=== PATIENT | female | born 2000 | race Caucasian/White ===

== ENCOUNTER 2021-06-06 16:13 | Emergency (ER) | payer BC, SELFPAY ==
--- NOTE | 2021-06-06 16:10 | ECG_ITS ---
APPROVED REPORT Exam: Resting ECG HR:101 bpm ECG Measurements Heart Rate 101 AXES MO 137 P 80 QRSd 86 QRS 92 QT 322 T 52 QTc 380 Conclusion SINUS TACHYCARDIA BORDERLINE RIGHT AXIS DEVIATION [QRS AXIS > 90] ABNORMAL RHYTHM ECG UNCONFIRMED REPORT Electronically signed by : Manish Busch MD 06/07/2021 19:21:15
[2021-06-06 16:14] VITALS: BP 134/86; PULSE 104; RESP 16; TEMP 36.9; O2SAT 100; BMI 30.2
--- NOTE | 2021-06-06 16:31 | HMH.EDGENADL ---
ED Disposition Clinical Impression: Near syncope, Atypical chest pain Disposition: Home, Self-Care Condition on Discharge: Good Instructions: DI for Syncope in Adults (Fainting), DI for Atypical Chest Pain Additional Instructions: Rest this evening and drink plenty of fluids. Follow-up with your primary care provider, call tomorrow to make appointment. Return if symptoms worsen. Additional instructions for CHEST PAIN: See your physician as soon as possible for further evaluation. Return immediately if worsening chest pain, vomiting, shortness of breath, fever, coughing of blood. Urine culture has been performed, results generally take 2 to 3 days. Follow-up the results of this test with your primary care provider within 2 to 3 days. Referrals: Minda Yun [Primary Care Provider] - - Critical Care Critical Care Time: No Attestation: On , the high probability of a clinically significant, sudden or life threatening deterioration of the following system(s) required my full and direct attention, intervention and personal management. The time I documented below is in addition to time spent performing reported procedures but includes the following listed in this critical care notation. Medical Decision Making - Michael Inquiry Pt receiving controlled substance: No Vital Signs: 06/06/21 16:14 06/06/21 17:10 Temperature 98.5 F Temperature Source Oral Pulse Rate [Orthostatic Lying Right Brachial] 92 H Pulse Rate [Orthostatic Sitting Right Brachial] 92 H Pulse Rate [Orthostatic Standing Right Brachial] 100 H Pulse Rate [Right Radial] 104 H Respiratory Rate 16 Blood Pressure [Orthostatic Lying Right Arm] 120/70 Blood Pressure [Orthostatic Sitting Right Arm] 120/75 Blood Pressure [Orthostatic Standing Right Arm] 111/78 Blood Pressure [Right Arm] 134/86 Blood Pressure Mean [Right Arm] 102 Blood Pressure Source [Right Arm] Automatic Cuff Blood Pressure Position [Right Arm] Sitting 02 Sat by Pulse Oximetry 100 Oxygen Delivery Method Room Air - Lab Data Lab Results 06/06/21 16:30: Urine Color Yellow, Urine Appearance Clear, Urine pH 6.5, Ur Specific [place] 1.025, Urine Protein Trace, Urine Glucose (UA) Negative, Urine Ketones Negative, Urine Blood 2+, Urine Nitrate Negative, Urine Bilirubin Negative, Urine Urobilinogen 0.2, Ur Leukocyte Esterase 1+ A, Urine RBC 10-20, Urine WBC 3-5, Ur Squamous Epith Cells 3-5, Urine Bacteria None 06/06/21 16:30: WBC 10.2, RBC 4.42, Hgb 13.8, Hct 40.4, MCV 91.4, MCH 31.2, MCHC 34.1, RDW 13.4, Plt Count 346, MPV 7.4, Neut % (Auto) 71.8, Lymph % (Auto) 20.9, [place] % (Auto) 6.3, Eos % (Auto) 0.3, Baso % (Auto) 0.6, Neut # (Auto) 7.4, Lymph # (Auto) 2.2, [place] # (Auto) 0.6, Eos # (Auto) 0.0, Baso # (Auto) 0.1 06/06/21 16:30: Urine HCG, Qual Negative 06/06/21 16:30: Sodium 134 L, Potassium 3.7, Chloride 101, Carbon Dioxide 26, Anion Gap 10.7, BUN 14, Creatinine 0.60, Estimated Creat Clear 173, Estimated GFR 129, Est GFR ( Amer) 156, Glucose 90, Calcium 8.5, Troponin I < 0.01 06/06/21 16:30: D-Dimer 0.48 Result diagrams: 06/06/21 16:30 06/06/21 16:30 Orders (Tests/Meds): ED MEDICATIONS Generic Name Dose Route Start Last Admin Trade Name Freq PRN Reason Stop Dose Admin Sodium Chloride 10 ml 06/06/21 16:34 Sodium Chloride 0.9% 10ml Flush Syringe IV 07/06/21 16:33 NEEDED PRN Maintain IV Site ORDERS Category Date Time Status Troponin I Q3H Lab 06/06/21 19:45 Ordered Troponin I Q3H Lab 06/06/21 22:45 Ordered Urine Culture Stat Micro 06/06/21 16:30 Received - Radiology Data #1 Image(s): Chest Image Reviewed: Yes I reviewed the patient's radiology image, Yes I have reviewed radiologist's interpretation Preliminary Findings: Normal/NAD PROCEDURE INFORMATION: Exam: XR Chest Exam date and time: 06/06/2021 4:34 PM Age: 20 years old Clinical indication: Pain; Chest pressure; Additional info: Syncope TECHNIQUE:
[2021-06-06 16:32] VITALS: BMI 30.2
--- NOTE | 2021-06-06 16:34 | XR_ITS ---
PROCEDURE INFORMATION: Exam: XR Chest Exam date and time: 06/06/2021 4:34 PM Age: 20 years old Clinical indication: Pain; Chest pressure; Additional info: Syncope TECHNIQUE: Imaging protocol: XR of the chest. Views: 1 view. Total images: 1 COMPARISON: No relevant prior studies available. FINDINGS: Lungs: Normal pulmonary expansion. Pulmonary vasculature grossly normal. No gross pulmonary infiltrates or edema pattern. Pleural spaces: No pleural effusion. No pneumothorax. Heart/Mediastinum: Heart size normal. No tracheal/mediastinal shift. Bones/joints: No acute osseous abnormalities are identified. IMPRESSION: No acute thoracic process.
--- NOTE | 2021-06-06 16:39 | PC.NURSE ---
PT AMBULATED UP TO BATHROOM , SHE ALSO REQUESTED A PREG TEST
--- NOTE | 2021-06-06 16:39 | PC.NURSE ---
Radiology at bedside
--- NOTE | 2021-06-06 16:46 | PC.NURSE ---
ER at bedside
[2021-06-06 16:48] LABS: Microscopic, Urine URINE MICROSCOPIC (MICROSCOPIC)
[2021-06-06 16:50] LABS: Appearance,Urine CLEAR (Clear); Bilirubin,Urine Negative (Negative); Blood, Urine 2+ (Negative); Color,Urine YELLOW (Yellow); Glucose,Urine (UA) Negative (Negative); Ketones,Urine Negative (Negative); Leukocyte Esterase,Urine 1+ (Negative); Nitrate,Urine Negative (Negative); PH,Urine 6.5 (5.0-8.5); Protein,Urine TRACE (Negative); Specific Gravity, Urine 1.025 (1.005-1.030); Urobilinogen,Urine 0.2 EU/dl (0.2)
[2021-06-06 16:53] LABS: Chloride 101 mmol/L (98-107); Sodium 134 mmol/L (136-145)
[2021-06-06 16:54] LABS: Basophils # 0.1 K/mm3 (0-0.2); Basophils % 0.6 % (0.1-2.0); Eosinophils % 0.3 % (0.1-12.0); Hematocrit 40.4 % (37.0-47.0); Hemoglobin 13.8 g/dL (12.2-16.2); Lymphocytes # 2.2 K/mm3 (0.7-4.5); Lymphocytes % 20.9 % (10-50); Mean Corpuscular HGB Conc 34.1 g/dL (31.8-35.4); Mean Corpuscular Hemoglobin 31.2 pg (27.0-31.2); Mean Corpuscular Volume 91.4 fl (81-99); Mean Platelet Volume 7.4 fl (7.4-10.4); Monocytes # 0.6 K/mm3 (0.1-1.0); Monocytes % 6.3 % (1.7-9.3); Neutrophils # 7.4 K/mm3 (1.8-7.8); Neutrophils % 71.8 % (37.0-80.0); Platelet Count 346 K/mm3 (142-424); Potassium 3.7 mmoL/L (3.5-5.1); Red Blood Count 4.42 M/mm3 (4.20-5.40); Red Cell Distribution Width 13.4 % (11.5-17.5); White Blood Count 10.2 K/mm3 (4.5-13.0)
[2021-06-06 16:57] LABS: Anion Gap 10.7 mEq/L (5-15); Blood Urea Nitrogen 14 mg/dl (7-17); Calcium 8.5 mg/dl (8.4-10.2); Carbon Dioxide 26 mmol/L (22.0-30.0); Creatinine Clearance Estimated 173 mL/min (50-200); Estimated Glomerular Filt Rate 129 ml/min (>60); GFR (African American) 156 ML/MIN (>60); Glucose 90 mg/dl (74-100)
[2021-06-06 17:05] LABS: D-Dimer 0.48 ug/mL (0.0-0.5)
[2021-06-06 17:09] LABS: Urine Pregnancy, HCG Qual. Negative (Negative)
[2021-06-06 17:10] VITALS: BP 111/78; BP 120/70; BP 120/75; PULSE 100; PULSE 92
[2021-06-06 17:22] LABS: Troponin I < 0.01 ng/ml (0.00-0.034)
[2021-06-06 18:46] VITALS: BP 100/65; PULSE 96; RESP 16; TEMP 37.1; O2SAT 99
== END 2021-06-06 18:49 | disposition home or self-care (01) ==
PROVIDERS: Emergency Provider Emergency Medicine; PCP Nurse Practitioner Pediatrics
DX: R55 Syncope and collapse (principal); R07.89 Other chest pain
CPT/HCPCS: 71045; 80048; 81001; 81025; 84484; 85025; 85378; 87086; 87088; 87186; 93005; 99283

== ENCOUNTER 2022-11-20 17:27 | Emergency (ER) | payer BC, SELFPAY ==
[2022-11-20] VITALS (7 sets, daily range): BP systolic 104–127; BP diastolic 62–78; PULSE 74–102; RESP 17–20; TEMP 36.9; O2SAT 98–100; BMI 32.1
[2022-11-20 17:57] LABS: Basophils % 0.3 % (0.1-2.0); Eosinophils % 0.2 % (0.1-12.0); Hematocrit 39.4 % (37.0-47.0); Hemoglobin 13.1 g/dL (12.2-16.2); Lymphocytes % 17.4 % (10-50); Mean Corpuscular HGB Conc 33.3 g/dL (31.8-35.4); Mean Corpuscular Hemoglobin 30.5 pg (27.0-31.2); Mean Corpuscular Volume 91.5 fl (81-99); Mean Platelet Volume 7.7 fl (7.4-10.4); Monocytes # 0.5 K/mm3 (0.1-1.0); Monocytes % 4.6 % (1.7-9.3); Neutrophils # 8.7 K/mm3 (1.8-7.8); Neutrophils % 77.5 % (37.0-80.0); Platelet Count 373 K/mm3 (142-424); Red Cell Distribution Width 13.9 % (11.5-17.5); White Blood Count 11.3 K/mm3 (4.8-10.8)
[2022-11-20 18:06] LABS: Chloride 105 mmol/L (98-107); Sodium 139 mmol/L (136-145)
[2022-11-20 18:07] LABS: Potassium 3.6 mmoL/L (3.5-5.1)
[2022-11-20 18:09] LABS: Alanine Aminotransferase 17 U/L (12-78); Albumin Level 4.2 g/dl (3.5-5.0); Albumin/Globulin Ratio 1.8 (1.1-1.8); Alkaline Phosphatase 53 U/L (38-126); Anion Gap 16.6 mEq/L (5-15); Aspartate Amino Transferase 20 U/L (14-36); Bilirubin,Total 0.4 mg/dl (0.2-1.3); Blood Urea Nitrogen 10 mg/dl (7-17); Carbon Dioxide 21 mmol/L (22.0-30.0); Creatinine Clearance Estimated 217 mL/min (50-200); Estimated Glomerular Filt Rate 156 ml/min (>60); GFR (African American) 188 ML/MIN (>60); Globulin 2.4 g/dL (1.3-3.2); Total Protein,Serum 6.6 g/dl (6.3-8.2)
[2022-11-20 18:10] LABS: Calcium 10.6 mg/dl (8.4-10.2); Glucose 89 mg/dl (74-100)
[2022-11-20 18:24] LABS: Microscopic, Urine URINE MICROSCOPIC (MICROSCOPIC)
[2022-11-20 18:30] LABS: Appearance,Urine CLEAR (Clear); Bilirubin,Urine Negative (Negative); Blood, Urine 1+ (Negative); Color,Urine YELLOW (Yellow); Glucose,Urine (UA) Negative (Negative); Ketones,Urine Negative (Negative); Leukocyte Esterase,Urine Negative (Negative); Nitrate,Urine Negative (Negative); Protein,Urine Negative (Negative); Specific Gravity, Urine 1.025 (1.005-1.030)
--- NOTE | 2022-11-20 18:46 | HMH.EDGENADL ---
Discharge Plan Disposition Patient Disposition: Left Against Medical Advice Referrals Follow up/Referrals: Luis E Hook PA [Primary Care Provider] - See instructions Activity Restrictions/Add. Instructions Additional Instructions/Restrictions: You have signed out AGAINST MEDICAL ADVICE. Please return to the ED at any time to complete your evaluation. Please follow-up with your OB doctor within 48 hours for repeat testing of your hCG. Clinical Impressions Clinical Impression: Bleeding in early , , location unknown Discharge ED Provider: Dino Russell General Adult HPI General Chief complaint: Vaginal Bleeding Stated complaint: 7 weeks , spotting Time Seen by Provider: 11/20/22 18:17 Mode of Arrival: Ambulatory Limitations: No Limitations Description of Symptoms (Recalled from ER Triage Doc. by RN): PT REPORTS LIGHT PINK AND OCCASIONAL DARK BROWN VAGINAL DISCHARGE WITH WIPING AFTER USING BATHROOM. PT REPORTS SHE IS APPROX 7 WEEKS . NO BRIGHT RED VAGINAL BLEEDING, NO CLOTS OR PAIN. PT REPORTS PREVIOUS MISCARRIAGE IN MAY 2022. History of Present Illness HPI narrative: Patient is a 22-year-old female with no significant past medical history, 7 weeks who presents to the emergency department for evaluation of vaginal bleeding. Patient reportedly had a miscarriage in May of this year. For the last few days patient has had spotting with wiping. Denies passage of clots or tissue. There is no low abdominal pain. Patient reportedly had an ultrasound conducted at another institution where the heart rate was in the 80s. She was not able to qualify any other information about this ultrasound. No other acute complaints at this time. Related Data Allergies Allergy/AdvReac Type Severity Reaction Status Date / Time amoxicillin Allergy Intermediate Verified 06/06/21 16:33 [facility] Disclaimer: The information contained in this section may have been updated after the patient was seen, as this information can be updated by other users. Social History Smoking Status: Current every day smoker alcohol intake: never current occupational status: other Travel in the last 8 weeks: None ROS Obtained: Yes Systems reviewed as appropriate & no additional complaints except as documented Physical Exam General General appearance: alert and in no apparent distress Head Head exam: atraumatic and normocephalic Eye Eye exam: Present PERRL and EOMI ENT ENT exam: Present mucous membranes moist Neck Neck exam: Present normal inspection Chest Chest inspection: Present normal inspection and symmetric chest wall rise Respiratory Respiratory exam: Present normal lung sounds bilaterally; Absent respiratory distress Cardiovascular Cardiovascular exam: Present regular rate and normal rhythm Abdominal Exam Abdominal exam: Present soft; Absent tenderness, guarding or rebound Extremities Exam Extremities exam: Present normal inspection Neurological Exam Neurological exam: Present alert and oriented X3 Psychiatric Psychiatric exam: Present normal affect Skin Skin exam: Present warm and dry Medical Decision Making Michael Inquiry Pt receiving controlled substance: No Vital Signs: 11/20/22 17:29 11/20/22 18:00 11/20/22 18:30 Temperature 98.5 F Temperature Source Oral Pulse Rate 88 88 Pulse Rate [Radial] 102 H Respiratory Rate 17 20 20 Blood Pressure 104/62 L 107/66 L Blood Pressure [Right Arm] 127/78 Blood Pressure Mean 76 82 Blood Pressure Mean [Right Arm] 94 Blood Pressure Source [Right Arm] Automatic Cuff Blood Pressure Position [Right Arm] Sitting 02 Sat by Pulse Oximetry 98 100 100 Oxygen Delivery Method Room Air 11/20/22 19:00 11/20/22 19:30 11/20/22 20:00 Temperature Temperature Source Pulse Rate 94 H 82 79 Pulse Rate [Radial] Respiratory Rate Blood Pressure 108/63 L 105/70 L 114/64 Blood Pressure [Right Arm] Blood Pressure Mean
[2022-11-20 19:04] LABS: Bacteria,Urine 1+ /lpf; RBC,Urine Occasional #/hpf (0-3)
[2022-11-20 19:05] LABS: Amorphous Sediment,Urine Trace /lpf
--- NOTE | 2022-11-20 19:42 | PC.NURSE ---
Rounded on pt. No needs voiced at this time.
--- NOTE | 2022-11-20 19:45 | PC.NURSE ---
rounded on patient given warm blanket, TV turned on, mother at bs
[2022-11-20 20:14] LABS: HCG,Quantitative 29431 mIU/ml (0-5.42)
--- NOTE | 2022-11-20 20:17 | PC.NURSE ---
Called RAD to have them page automotive parts counterperson u/s tech. Pt updated at this time.
--- NOTE | 2022-11-20 20:23 | PC.NURSE ---
Dr. Russell at BS
--- NOTE | 2022-11-20 20:25 | PC.NURSE ---
Md @ bedside and pt understand request of not having ultrasound and has decided to sign out AMA
== END 2022-11-20 20:52 | disposition left against medical advice (07) ==
PROVIDERS: Emergency Provider Emergency Medicine; PCP Student in an Organized Health Care Education/Training Program
DX: O26.851 Spotting complicating pregnancy, first trimester (principal); Z3A.01 Less than 8 weeks gestation of pregnancy
CPT/HCPCS: 80053; 81001; 84702; 85025; 86900; 86901; 99285

== ENCOUNTER 2024-04-27 17:42 | Outpatient (CLI) | payer BC, SELFPAY ==
[2024-04-27] VITALS (11 sets, daily range): BP systolic 123–156; BP diastolic 76–95; PULSE 72–97; RESP 18; TEMP 36.8; O2SAT 98–100; BMI 35.5
[2024-04-27 18:13] LABS: Microscopic, Urine URINE MICROSCOPIC (MICROSCOPIC)
[2024-04-27 18:21] LABS: Appearance,Urine CLEAR (Clear); Bilirubin,Urine Negative (Negative); Blood, Urine Negative (Negative); Color,Urine YELLOW (Yellow); Glucose,Urine (UA) Negative (Negative); Ketones,Urine Negative (Negative); Leukocyte Esterase,Urine 2+ (Negative); Nitrate,Urine Negative (Negative); PH,Urine 7.5 (5.0-8.5); Protein,Urine Negative (Negative)
[2024-04-27 19:08] LABS: Bacteria,Urine 4+ /lpf; Squamous Epithelial Cell,Urine 20-50 #/hpf (0-5); WBC,Urine 50-100 #/hpf (0-3)
[2024-04-27 19:38] LABS: Amphetamine/Metha Screen,Urine Negative ng/ml (<1000); Benzodiazepines Screen,Urine Negative ng/ml (<200)
[2024-04-27 19:39] LABS: Barbiturates Screen,Urine Negative ng/ml (<200)
[2024-04-27 19:40] LABS: Cannabinoid Screen,Urine Negative ng/ml (<50); Cocaine Screen,Urine Negative ng/ml (<300)
[2024-04-27 19:41] LABS: Methadone Screen,Urine Negative ng/ml (<300); Opiate Screen,Urine Negative ng/ml (<300)
[2024-04-27 19:42] LABS: Phencyclidine Screen,Urine Negative ng/ml (<25)
[2024-04-27 20:02] LABS: Basophils % 0.3 % (0.1-2.0); Eosinophils % 0.3 % (0.1-12.0); Hematocrit 31.7 % (37.0-47.0); Hemoglobin 10.3 g/dL (12.2-16.2); Lymphocytes # 1.8 K/mm3 (0.7-4.5); Lymphocytes % 14.7 % (10-50); Mean Corpuscular HGB Conc 32.5 g/dL (31.8-35.4); Mean Corpuscular Hemoglobin 28.8 pg (27.0-31.2); Mean Corpuscular Volume 88.5 fl (81-99); Mean Platelet Volume 10.1 fl (7.4-10.4); Monocytes # 0.8 K/mm3 (0.1-1.0); Neutrophils # 9.8 K/mm3 (1.8-7.8); Platelet Count 260 K/mm3 (142-424); Red Blood Count 3.58 M/mm3 (4.20-5.40); Red Cell Distribution Width 14.5 % (11.5-17.5); White Blood Count 12.5 K/mm3 (4.8-10.8)
[2024-04-27 20:21] LABS: Chloride 106 mmol/L (98-107)
[2024-04-27 20:22] LABS: Albumin Level 3.4 g/dl (3.5-5.0); Sodium 133 mmol/L (136-145)
[2024-04-27 20:24] LABS: Alanine Aminotransferase 15 U/L (12-78); Anion Gap 8.1 mEq/L (5-15); Aspartate Amino Transferase 21 U/L (14-36); Blood Urea Nitrogen 5 mg/dl (7-17); Carbon Dioxide 22 mmol/L (22.0-30.0); Creatinine Clearance Estimated 238 mL/min (50-200); Estimated Glomerular Filt Rate 154 ml/min (>60); GFR (African American) 187 ML/MIN (>60); Potassium 3.1 mmoL/L (3.5-5.1)
[2024-04-27 20:25] LABS: Activated Partial Thrombo Time 24.8 seconds (22.5-28.5); Albumin/Globulin Ratio 1.4 (1.1-1.8); Alkaline Phosphatase 128 U/L (38-126); Bilirubin,Total 0.2 mg/dl (0.2-1.3); Calcium 8.9 mg/dl (8.4-10.2); Globulin 2.5 g/dL (1.3-3.2); Glucose 85 mg/dl (74-100); INR 0.86 (0.9-1.1); Prothrombin Time 9.6 seconds (9.2-12.1); Total Protein,Serum 5.9 g/dl (6.3-8.2)
[2024-04-27 20:47] LABS: Uric Acid 3.5 mg/dl (2.5-6.2)
[2024-04-27 21:08] LABS: Fibrinogen 427 mg/dL (208.1-352.0)
== END 2024-04-27 21:30 | disposition home or self-care (01) ==
LOC: OBOUT 17:46 → OB 17:47
PROVIDERS: Visit Provider Nurse Practitioner Obstetrics & Gynecology
DX: O10.913 Unspecified pre-existing hypertension complicating pregnancy, third trimester (principal); Z3A.36 36 weeks gestation of pregnancy
CPT/HCPCS: 80053; 80307; 81001; 84550; 85025; 85384; 85610; 85730; 87086; G0463

== ENCOUNTER 2024-10-25 16:04 | Outpatient (CLI) | payer BC, SELFPAY ==
--- OUTSIDE RECORDS SUMMARY | 2024-10-25 16:06 | XMS_ITS | Encounter Summary ---
Author Organization Healthcare Address [address] [place] [address] Care Team Providers Care Tongue Stitcher Name Role Phone Whitney Martinez MD Primary Care Provider [phone] Encounter Details Date Type Department Care Team (Late st Contact Info) Description 03/16/2024 Outside Procedure External Location [address] [place] [address] Ranulfo Ayala MD [address] [place] [address] Social History Tobacco Use Types Packs/Day Years Used Date Smoking Tobacco: Never Smokeless Tobacco: Former Quit: 01/2023 Alcohol Use Standard Drinks/Week Comments Not Currently 0 (1 standard drink = 0.6 oz pur e alcohol) PHQ-2 Answer Date Recorded Patient Health Questionnaire-2 Score 0 03/17/2024 PHQ-2A Answer Date Recorded Patient Health Questionnaire-2 Score 0 03/09/2023 Comments Yes Sex and Gender Information Value Date Recorded Sex Assigned at Not on file Legal Sex Female 9:15 AM EST Gender Identity Not on file Sexual Orientation Not on file documented as of this encounter Functional Status * Over the past 2 weeks, how often have you been bothered by any of the following problems? Question Answer Date of Assessment Author Little interest or pleasure in doing things Not at all 03/17/2024 8:27 AM EST Anupam Watkins Feeling down, depressed, or hopeless Not at all 03/17/2024 8:27 AM EST Anupam Watkins Patient Health Questionnaire -2 Score 0 03/17/2024 8:27 AM EST Anupam Watkins documented as of this encounter Plan of Treatment Not on file documented as of this encounter Procedures Procedure Name Priority Date/Time Associated Diagnosis Comments US RENAL COMPLETE 03/16/2024 8:3 8 AM EST documented in this encounter Results * US Renal Complete (03/16/2024 8:38 AM EST) Anatomical Region Laterality Modality Kidney Ultrasound 03/16/2024 8:38 AM EST Narrative 03/16/2024 12:02 [place] [address] Name: VIANNEY ALVAREZ Exam Date: 03/16/2024 : 2000 Age 23 years Gender: F Physician: RANULFO AYALA Facility: [facility] Facility HSV: Outpatient Exam: RENAL,BILATERAL US Procedure: US KIDNEY BILATERAL Exam Date: 03/16/2024 9:44 AM JOB SETTER Indication:back pain r/o kidney stone Comparison: None. Technique: Sinclair scale sonographic evaluation of the kidneys was performed with color Doppler or Duplex imaging if needed. FINDINGS: The right kidney measures 13.3 cm in length and demonstrates normal cortical echogenicity. No hydronephrosis or shadowing renal calculi demonstrated. The left kidney measures 12.5 cm in length and demonstrates normal cortical echogenicity. Mild left-sided hydroureteronephrosis. No shadowing renal calculi demonstrated. IMPRESSION: Mild left-sided hydroureteronephrosis. No renal calculi demonstrated. Electronically signed by:Whitney Cox MD03/16/2024 11:59 AM EST Dictated By: Whitney Cox Transcribed By: Transcribed On: 03/16/2024 10:44 AM Electronically signed by: Whitney Cox 03/16/2024 Thank you for referring VIANNEY ALVAREZ to [facility]. Legally authenticated by SUNSHINE ARAUJO 2024-03-16 10:44:20 Procedure Note Provider, Generic [facility] 03/16/2024 [facility] [address] [place] [address] Name: VIANNEY ALVAREZ Exam Date: 03/16/2024 : 2000 Age 23 years Gender: F Physician: RANULFO AYALA Facility: [facility] Facility HSV: Outpatient Exam: RENAL,BILATERAL US Procedure: US KIDNEY BILATERAL Exam Date: 03/16/2024 9:44 AM JOB SETTER Indication:back pain r/o kidney stone Comparison: None. Technique: Sinclair scale sonographic evaluation of the kidneys was performedwith color Doppler or Duplex imaging if needed. FINDINGS: The right kidney measures 13.3 cm in length and demonstrates normalcortical echogenicity. No hydronephrosis or shadowing renal calculi demonstrated. The left kidney measures 12.5 cm in length and demonstrates normalcortical echogenicity. Mild left-sided hydroureteronephrosis. No shadowing renal calculi demonstrated. IMPRESSION: Mild left-sided hydroureteronephrosis. No renal calculi demonstrated. Electronically signed by:Whitney Cox MD03/16/2024 11:59 AM EST Dictated By: Whitney Cox Transcribed By: Transcribed On: 03/16/2024 10:44 AM Electronically signed by: Whitney Cox 03/16/2024 Thank you for referring VIANNEY ALVAREZ to [facility]. Legally authenticated by SUNSHINE ARAUJO 2024-03-16 10:44:20 us Ranulfo Ayala MD IMG US PROCEDURES Final Result documented in this encounter Visit Diagnoses Not on filedocumented in this encounter Additional Health Concerns Assessment Noted Time A fall risk assessment has been complete d for the patient 02/18/2024 8:36 AM EST A Body Mass Index follow-up plan has been documented for the patient 02/18/2024 8:55 AM EST documented as of this encounter Care Teams Tongue Stitcher Relationship Specialty Start Date End Date Whitney Martinez MD [address] [place] [address] PCP - General 03/09/23 documented as of this encounter
--- OUTSIDE RECORDS SUMMARY | 2024-10-25 16:07 | XMS_ITS | Clinical Summary ---
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 3 Active FOLIC ACID PO Take by mouth. A ctive ferrous sulfate 325 (65 Fe) MG tablet Take 1 tablet (325 mg) by mouth 2 (two) times a day. 60 tablet 3 4 Active Additional Information Patient not taking.Reported on 08/03/2024 ibuprofen 800 MG tablet TAKE ONE (1) TABLET (800 MG) BY MOUTH EVERY EIGHT HOURS *TIME FOR 8AM, 4PM, 12AM* (NOT TO EXC EED 2400MG IN 24 HOURS) 5 Active docusate sodium (Colace) 100 MG capsule TAKE TWO (2) CAPSULES (200 MG) BY MOUTH EVERY TWELVE HOURS NEEDED FOR CONSTIPATION 5 Active acetaminophen (Tylenol) 325 MG tablet TAKE TWO (2) TABLETS (650 MG) BY MOUTH EVERY SIX HOURS NEEDED FOR MILD PAIN 1-3 PAIN SCALE OR FEVER (NOT TO EXCEED 3000MG IN 24 HOURS) 5 Active labetalol (Normodyne) 100 MG tablet take two (2) tablets (200 mg) by mouth three times a day 5 Active sertraline (Zoloft) 50 MG tablet take one (1) tablet every day by oral route. Active norethindrone-e thinyl estradiol (05/02) 1-20 MG-MCG tabletIndicatio ns:Encounter for routine follow-up Take 1 tablet by mouth daily. 28 tablet 11 Active Additional Information Patient not taking.Reported on 08/03/2024 Active Problems Problem Noted Date Diagnosed Date IUD contraception 08/03/2024 Assessment & Plan (08/03/2024 10:47 AM EDT): Orders: POCT Urine Encounter for gynecological examination without abnormal finding 06/17/2024 Resolved Problems Problem Noted Date Diagnosed Date Resolved Date Encounter for routine follow-up 05/13/2024 08/03/2024 Mild pre-eclampsia, antepartum 05/13/2024 06/17/2024 Mastitis 05/13/2024 05/20/2024 35 weeks gestation of 02/18/2024 05/13/2024 22 weeks gestation of 11/19/2023 02/18/2024 state, incidental 10/08/2023 0 11/19/2023 Assessment & Plan (10/08/2023 8:56 AM EDT): - labs today - pap - US shows viable SIUP with CRL not c/w LMP, change MELYSSA to 05/25/24 - continue PNV and folic acid - precautions discussed. New OB backpack given - RTC for 2 week viability US Encounters Date Type Department Care Team Description 08/03/2024 10:00 AM EDT Procedure Visit Obstetrics & Gynecology [address] [place] [address] Melina Vásquez MD IUD contraception (Primary Dx) 08/03/2024 Travel from Last 3 Months Immunizations Immunization Administration Dates Next Due Influenza, seasonal, injectable, preservative fr ee 12/17/2023 Rsv, Bivalent, Protein Subun it Rsvpref, Diluent Reconstituted, 0.5mL, PF 04/04/2024 Tdap 03/17/2024 Family History Medical History Relation Name Comments Cancer Cousin Diabetes Father Jovany No Known Problems Father's Brother No Known Problems Father's Sister No Known Problems Maternal Grandfather Cancer Maternal Grandmother Lizbet Patel No Known Problems Mother No Known Problems Mother's Brother Breast cancer Mother's Sister Diabetes Paternal Grandfather Jovany Diabetes Paternal Grandmother Nahid No Known Problems Sister Relation Name Status Comments Cousin Alive Father Jovany Alive Father's Brother Alive Father's Sister Alive Maternal Grandfather Maternal Grandmother Lizbet Patel Mother Alive Mother's Brother Alive Mother's Sister Alive Paternal Grandfather Jovany Alive Paternal Grandmother Nahid Alive Sister Alive Social History Tobacco Use Types Packs/Day Years Used Date Smoking Tobacco: Never Smokeless Tobacco: Former Quit: 01/11/2023 Tobacco Cessation:Counseling Given: Not Answered Alcohol Use Standard Drinks/Week Comments Not Currently 0 (1 standard drink = 0.6 oz pur e alcohol) PHQ-2 Answer Date Recorded Patient Health Questionnaire-2 Score 0 08/03/2024 Empire Depression Scale Answer Date Recorded Empire Depression Scale Total 4 06/06/2024 The thought of harming myself has occurred to me . Never 06/06/2024 PHQ-9 Answer Date Recorded Patient Health Questionnaire-9 Score 0 08/03/2024 PHQ-2A Answer Date Recorded Patient Health Questionnaire-2 Score 0 03/09/2023 Comments No Sex and Gender Information Value Date Recorded Sex Assigned at Not on file Legal Sex Female 9:15 AM EST Gender Identity Not on file Sexual Orientation Not on file Last Filed Vital Signs Vital Sign Reading Time Taken Comments Blood Pressure 104/66 08/03/2024 10:13 AM EDT Pulse 80 08/03/2024 10:13 AM EDT Temperature 36.8 C (98.3 F) 06/06/2024 11:24 AM EST Respiratory Rate 16 08/03/2024 10:13 AM EDT Oxygen Saturation 100% 08/03/2024 10:13 AM EDT Inhaled Oxygen Concentration - - Weight 77 kg (169 lb 12.1 oz) 08/03/2024 10:13 A M EDT Height 154.9 cm (5' 1 ) 08/03/2024 10:13 AM EDT Body Mass Index 32.07 08/03/2024 10:13 AM EDT Plan of Treatment Health Maintenance Due Date Last Done Comments [facility]-Infant/Child/Adol SDOH Screenings 2001 [facility]- SDOH Screenings 07/07/2019 [facility]-Adult SDOH Screenings 07/07/2019 [facility]-Pap Smear 2022 [id number] Vaccine ( season) 2023 04/08/2021, 03/14/2021 [facility]-Chlamydia and Gonorrhea Screening 10/07/2024 10/08/2023, 10/08/2023 [facility]-Influenza Vaccine (#1) 2024 12/17/2023 [facility]-Depression Screening 08/03/2025 025, 08/03/2024, 06/06/2024 [facility]-DTaP,Tdap,and Td Vaccines (8 - Td or Tdap) 03/17/2034 03/17/2024, 11/04/2012, 10/05/2006, Additional history exists [facility]-Zoster Vaccines (1 of 2) 07/07/2051 01/19/2023, 12/24/2022, 10/05/2006, Additional history exists [facility]-HIB Vaccines Completed 07/21/2002, 12/2001, 2001 [facility]-Hepatitis B Vaccines Completed 003, 2001, 2001 [facility]-IPV Vaccines Completed 10/05/2006, 12/2001, 2001, Additional history exists HPV Vaccines Completed 12/15/2017, 09/2017, 11/04/2012 [facility]-Hepatitis A Vaccines Completed 12/15/2017, 09/2017 [facility]-Varicella Vaccines Completed , 12/24/2022, 10/05/2006, Additional history exists [facility]-HIV Screening Completed 10/08/2023 [facility]-Hepatitis C Screening Completed 10/08/2023 [facility]-RSV Vaccine: 60+ Years or Discontinued 04/04/2024 [facility]-Obesity Intervention Completed 025, 06/17/2024, 06/06/2024, Additional history exists [facility]-Pneumococcal Vaccine: Pediatrics (0 to 5 Years) and At-Risk Patients (6 to 49 Years) Aged Out No longer eligible based on patient's age to complete this topic [facility]-Rotavirus Vaccines Aged Out No lo nger eligible based on patient's age to complete this topic Procedures Procedure Name Priority Date/Time Associated Diagnosis Comments POCT , URINE Routine 08/03/2024 10:26 AM EDT IUD contraception MD INSERT INTRAUTERINE DEVICE Routine 08/03/2024 10:00 AM EDT IUD contraception HEPATITIS C ANTIBODY W/REFLEX TO HCV QUANT PCR Routine 10/08/2023 8:47 AM EDT state, incidental HIV 1/2 ANTIBODY/ANTIGEN SCREEN WITH REFLEX TO HIV I/II DIFFERENTIATION Routine 10/08/2023 8:47 AM EDT state, incidental CHLAMYDIA TRACHOMATIS DNA BY PCR Routine 10/08/2023 8:47 AM EDT state, incidental from Last 3 Months or Most Recently Relevant to Health Maintenance Results * POCT Urine (08/03/2024 10:26 AM EDT) Urine - Point of Care Negative - women after 7 weeks gestation and dilute urine (specific gravity <1.010) may have false negative results. Plasma HCG testing is recommended. Test performed at Point of Care. Negative - women after 7 weeks gestation and dilute urine (specific gravity <1.010) may have false negative results. Plasma HCG testing is recommended. Test performed at Point of Care. INTERNAL QC OK, PREG URINE passed [id number] KIT LOT NUMBER, PREG URINE [id number] KIT EXPIRATION DATE, PREG URINE 09/22/25 Urine Urine specimen obtained by clean catch procedure / Unknown 08/03/2024 10:26 AM EDT Melina Vásquez MD POINT OF CARE TEST ENTER /EDIT ORDERABLES Final Result * MD INSERT INTRAUTERINE DEVICE (08/03/2024 10:00 AM EDT) Narrative Melina Vásquez MD - 08/03/2024 10:00 AM EDT Melina Vásquez MD 08/03/2024 10:47 AM IUD Management Performed by: Melina Vásquez MD Authorized by: Melina Vásquez MD Procedure: IUD insertion Consent obtained by patient, parent, or legal power of real estate associate attorney - including discussion of procedure risks and benefits, patient questions answered, and patient education provided: yes risk: reasonably certain the patient is not Date/Time of Insertion: 08/03/2024 10:45 AM Immediately prior to procedure a time out was called: yes Speculum placed in vagina: yes Cervix cleaned and prepped: yes Tenaculum/Allis/Ring Forceps applied to cervix: yes Anesthesia used: yes Local anesthesia: Topical Local anesthetic: Lidocaine Uterus sound depth (cm): 8 Cervix manually dilated: no IUD inserted without complications: yes OSM: 1 each levonorgestrel 20 MCG/DAY Strings trimmed to (cm): 3 Patient tolerated procedure well: yes Inserted with ultrasound guidance: no Transvaginal sono confirmed fundal placement: no Estimated blood loss (mL): 0 Intended removal date: 8 years Melina Vásquez MD IN CLINIC/BEDSIDE ORDERA BLES Final Result * Chlamydia trachomatis DNA by PCR (10/08/2023 8:47 AM EDT) Chlamydia trachomatis DNA PCR Result Not Detected Not Detected 10/09/2023 1:56 PM EDT [facility] Urine Urine specimen / Unknown Non-blood Collection / Unknown 10/08/2023 8:47 AM EDT 10/08/2023 1:09 PM EDT Narrative [facility] - 10/09/2023 1:56 PM EDT This test is performed by the [employer] m2000 instrument for Real Time PCR C. trachomatis and N. gonorrhea. This test is FDA approved for use with endocervical, vaginal, and urine specimens. This test is used for clinical purposes. It should not be regarded as invesigational or for research. The [facility] Clinical Microbiology [facility] is certified under the Clinical Laboratory Improvement Amendments of 1988 (CLIA-88) as qualified to perform high complexity clinical laboratory testing. Melina Vásquez MD LAB MICROBIOLOGY - GENER AL ORDERABLES Final Result Performing Organization Address [facility] Co de Phone Number [facility] [address] [place] [address] * HIV 1 & 2 Antibody/Antigen Screen (10/08/2023 8:47 AM EDT) [facility] HIV 1 & 2 Antibody/Antigen Screen Non Reactive Non Reactive 10/08/2023 2:47 PM EDT [facility] Comment:Screening for HIV 1 & 2 antibodies, and P24 antigen is NONREACTIVE. No confirmatory testing is required. Blood Venous blood specimen / Unknown Venipuncture / Unknown 10/08/2023 8:47 AM EDT 10/08/2023 1:14 PM EDT Melina Vásquez MD LAB BLOOD ORDERABLES Fin al Result Performing Organization Address City/[facility]/ZIP Co de Phone Number [facility] [address] [place] [address] * Hepatitis C Antibody (10/08/2023 8:47 AM EDT) [facility] Hepatitis C Antibody Negative Negative 10/08/2023 1:50 PM EDT [facility] Blood Venous blood specimen / Unknown Venipuncture / Unknown 10/08/2023 8:47 AM EDT 10/08/2023 1:12 PM EDT Melina Vásquez MD LAB BLOOD ORDERABLES Fin al Result Performing Organization Address City/[facility] Co de Phone Number [facility] [address] [place] [address] from Last 3 Months or Most Recently Relevant to Health Maintenance Insurance [facility] Care Teams 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
[2024-10-25 19:10] LABS: Chloride 100 mmol/L (98-107); Potassium 4.5 mmoL/L (3.5-5.1); Sodium 137 mmol/L (136-145)
[2024-10-25 19:13] LABS: Anion Gap 15.5 mEq/L (5-15); Blood Urea Nitrogen 14 mg/dl (7-17); Carbon Dioxide 26 mmol/L (22.0-30.0); Cholesterol 171 mg/dl (140-200); Creatinine,Serum 0.70 mg/dl (0.52-1.04); Estimated Glomerular Filt Rate 104 ml/min (>60); GFR (African American) 125 ML/MIN (>60); Triglycerides 70 mg/dl (30-150)
[2024-10-25 19:14] LABS: Calcium 9.2 mg/dl (8.4-10.2); Glucose 76 mg/dl (74-100); HDL Cholesterol 51 mg/dl (40-60)
[2024-10-25 19:34] LABS: Free Thyroxine Index 2.7 ug/dL (5.93-13.13); T4 (Thyroxine) 8.7 ug/dl (5.53-11.0); Triiodothryronine (T3) Uptake 31 % (23.5-40.5)
[2024-10-25 19:48] LABS: Thyroid Stimulating Hormone 2.57 uIU/mL (0.465-4.68)
== END 2024-10-25 23:59 | disposition home or self-care (01) ==
LOC: LAB 16:05
PROVIDERS: Visit Provider Nurse Practitioner
DX: I49.3 Ventricular premature depolarization (principal)
CPT/HCPCS: 36415; 80048; 80061; 84436; 84443; 84479; 93270